=== PATIENT | male | born 1935 | race Caucasian/White ===

== ENCOUNTER 2018-03-20 22:03 | Emergency (ER) | payer MEDICAID ==
[~2018-03-20] VITALS: Ht 167.6 cm; Wt 74.8 kg
--- NOTE | 2018-03-20 22:45 | NUR ---
Dr. Anderson at bedside for MSE.
--- NOTE | 2018-03-20 22:55 | NUR ---
Xray at bedside.
[2018-03-20] MEDS ORDERED: MORPHINE SULFATE 2 MG/1 ML DISP.SYRIN IV ONE (23:15)
[2018-03-20] MEDS ORDERED: ONDANSETRON IV *ER 4 MG/2 ML VIAL IV ONE (23:15)
[2018-03-20] MEDS ORDERED: MORPHINE SULFATE 4 MG/1 ML DISP.SYRIN ONE (23:31)
[2018-03-20] MEDS ORDERED: ONDANSETRON 4 MG/2 ML VIAL ONE (23:31)
[2018-03-20 23:36] LABS: BASOPHILS # (AUTO) 0.1 K/uL (0.0-8.0); BASOPHILS % (AUTO) 0.5 % (0.0-2.0); EOSINOPHILS % (AUTO) 0.1 % (0.0-7.0); HEMATOCRIT 39.8 % (36.7-47.1); HEMOGLOBIN 13.3 g/dL (12.5-16.3); LYMPHOCYTES # (AUTO) 1.3 K/uL (20.0-40.0); LYMPHOCYTES % (AUTO) 8.4 % (20.5-51.5); MEAN CORPUSCULAR HEMOGLOBIN 30.1 uug (23.8-33.4); MEAN CORPUSCULAR HGB CONC 33 g/dL (32.5-36.3); MEAN CORPUSCULAR VOLUME 89.9 fL (73.0-96.2); MONOCYTES # (AUTO) 1.1 K/uL (2.0-10.0); MONOCYTES % (AUTO) 7.5 % (0.0-11.0); NEUTROPHILS # (AUTO) 12.5 K/uL (1.8-8.9); NEUTROPHILS % (AUTO) 83.5 % (38.5-71.5); PLATELET COUNT (AUTO) 236 K/uL (152-348); RED BLOOD CELL COUNT(AUTO) 4.42 MIL/uL (4.06-5.63); WHITE BLOOD COUNT (AUTO) 14.9 K/uL (3.6-10.2)
[2018-03-20 23:44] LABS: CARBON DIOXIDE 27 mmol/L (21-32); CHLORIDE 102 mmol/L (98-107); CREATININE 1.2 mg/dL (0.6-1.3); GLUCOSE 157 mg/dL (74-106); POTASSIUM 3.2 mmol/L (3.5-5.1); UREA NITROGEN, BLOOD 19 mg/dL (7-18)
--- NOTE | 2018-03-20 23:44 | NUR ---
Pt O2 sat 89% on room air, placed patient on 2L/min via nasal cannula, O2 sat now 94%.
[2018-03-20] MEDS ORDERED: TAMS-3 PO (23:49)
[2018-03-20] MEDS ORDERED: ATOR40TA PO (23:49)
[2018-03-20] MEDS ORDERED: VITA-287 PO (23:49)
[2018-03-20] MEDS ORDERED: ASPI-605 PO (23:49)
[2018-03-20] MEDS ORDERED: OMEP20CA10 PO (23:49)
[2018-03-20] MEDS ORDERED: FLUO10TA PO (23:49)
[2018-03-20] MEDS ORDERED: TRAZ-182 PO (23:49)
[2018-03-20] MEDS ORDERED: AMLO5TAB4 PO (23:49)
[2018-03-20] MEDS ORDERED: MULT-1119 PO (23:49)
--- NOTE | 2018-03-20 23:55 | NUR ---
Pt refused ryan catheter at this time. Patient able to use urinal.
--- NOTE | 2018-03-21 00:05 | NUR ---
Shirley from [facility] called back. Will have [place] MD call Dr Anderson
[2018-03-21] MEDS: POTASSIUM CHLORIDE 50 ML IV SCH ×4 (00:12→02:54)
[2018-03-21] MEDS ORDERED: MORPHINE SULFATE 4 MG/1 ML DISP.SYRIN ONE ×2 (00:35→03:27)
--- NOTE | 2018-03-21 00:42 | NUR ---
Dr Anderson spoke with Dee BLACK from [facility] regarding transfer
[2018-03-21] MEDS ORDERED: MORPHINE SULFATE 2 MG/1 ML DISP.SYRIN IV ONE ×2 (00:45→03:15)
--- NOTE | 2018-03-21 00:47 | NUR ---
Inserted ryan catheter, patient tolerated procedure well.
[2018-03-21] MEDS ORDERED: POTASSIUM CHLORIDE 50 ML ONE ×4 (00:50→02:39)
--- NOTE | 2018-03-21 02:05 | NUR ---
Pt sleeping in bed, no acute signs of distress.
--- NOTE | 2018-03-21 02:08 | NUR ---
Called Shirley from [facility]. Was given transfer info. Patient will be going to [facility] Room 308A . Accepting MD is Dr Christy
--- NOTE | 2018-03-21 03:10 | NUR ---
Pt awoke, states he's in pain, requests more pain medication. MD notified.
--- NOTE | 2018-03-21 03:29 | NUR ---
Received call from [facility], ETA given for [facility] @0400, patient going to room 308A, Phone # to report .
--- NOTE | 2018-03-21 03:34 | NUR ---
Report given to Janell ARREDONDO [facility].
--- NOTE | 2018-03-21 03:40 | NUR ---
Ivana arrived to ER. Report and documentation given to EMT.
--- NOTE | 2018-03-21 04:02 | NUR ---
Pt out of ER via [facility], to transport patient to [facility]. Report and documentation with EMT. Family notified.
== END 2018-03-21 04:06 | disposition short-term general hospital (02) ==
LOC: ER 22:03
DX: S72.032A Displaced midcervical fracture of left femur, initial encounter for closed fracture (principal); E87.6 Hypokalemia; R05 Cough; E78.5 Hyperlipidemia, unspecified; I10 Essential (primary) hypertension; I25.10 Atherosclerotic heart disease of native coronary artery without angina pectoris; Z79.82 Long term (current) use of aspirin; Z79.891 Long term (current) use of opiate analgesic; Z79.899 Other long term (current) drug therapy; W18.30XA Fall on same level, unspecified, initial encounter; Y93.89 Activity, other specified; Y92.89 Other specified places as the place of occurrence of the external cause; Y99.8 Other external cause status
CPT/HCPCS: 36415; 51702; 71045; 73502; 80048; 85025; 85730; 93005; 96365; 96366; 96375; 96376; 99285; J2270 ×3; J2405; J3480 ×4; A4663; J7030